=== PATIENT | female | born 1985 | race Caucasian/White ===

== ENCOUNTER 2023-09-29 06:57 | Outpatient (CLI) | payer BC, SELFPAY ==
--- NOTE | 2023-09-29 07:15 | CRLHL7_ITS ---
For Patients: As a result of the Century Cures Act, medical imaging exams and procedure reports are released immediately into your electronic medical record. You may view this report before your referring provider. If you have questions, please contact your health care provider. INDICATION: First trimester scan, establish dates. COMPARISON: None. TECHNIQUE: Real-time nunez-scale imaging of the pelvis was performed. FINDINGS: heart rate 169 beats per minute. [place]-rump length 2.7 cm, 9 weeks 4 days, 04/29/2024. edema noted with prominence of the abdominal wall. Yolk sac measures 4.1 millimeters. Corpus luteal cyst right ovary measuring 2.1 cm. Gestational sac appears normal with a mean sac diameter of 3.9 cm, 9 weeks 2 days. IMPRESSION: Single living IUP with sonographic gestational age 9 weeks 4 days and sonographic due date of 04/29/2024. There is concern for hydrops and appropriate follow-up recommended. Dictated by Gabriele Trejo MD @ 09/29/2023 10:41:26 AM (Electronically Signed)
== END 2023-09-29 06:58 | disposition home or self-care (01) ==
PROVIDERS: Visit Provider Registered Nurse
DX: Z34.91 Encounter for supervision of normal pregnancy, unspecified, first trimester (principal); Z3A.09 9 weeks gestation of pregnancy
CPT/HCPCS: 76817; 87491; 87591; T1013

== ENCOUNTER 2023-10-13 08:05 | Outpatient (CLI) | payer BC, SELFPAY | END 2023-10-13 08:06 | disposition home or self-care (01) | PROVIDERS: Visit Provider Physician Assistant | DX: Z34.81 Encounter for supervision of other normal pregnancy, first trimester (principal) | CPT/HCPCS: 86592; 86703; 86704; 86706; 86762; 86787; 86803; 86850; 86900; 86901; 87086; 87340; T1013 ==

== ENCOUNTER 2023-10-13 08:10 | Outpatient (CLI) | payer BC, SELFPAY ==
--- NOTE | 2023-10-13 08:15 | CRLHL7_ITS ---
For Patients: As a result of the Cures Act, medical imaging exams and procedure reports are released immediately into your electronic medical record. You may view this report before your referring provider. If you have questions, please contact your health care provider. INDICATION: Supervision of normal . COMPARISON: Ob ultrasound 09/29/2023. Technique: Transabdominal OB ultrasound. Findings : Single viable intrauterine gestation of 11 weeks and 5 days duration with an expected date of delivery 04/28/2024. heart rate 163 beats per minute and regular. [address]-rump length 5.1 cm and the mean diameter of the gestational sac 4.7 cm. A 1.2 x 0.9 x 0.7 cm subchorionic hemorrhage inferior to the gestational sac. No evidence of hydrops. A small corpus luteum cyst in the right ovary. IMPRESSION: 1. Single viable intrauterine gestation of 11 weeks and 5 days duration with an expected date of delivery 04/28/2024. 2. heart rate 163 beats per minute and regular. 3. [address]-rump length 5.1 cm and the mean diameter of the gestational sac 4.7 cm. 4. 1.2 x 0.9 x 0.7 cm subchorionic hemorrhage inferior to the gestational sac. 5. No hydrops identified at this time. Dictated by Nori Oswald MD @ 10/14/2023 10:22:02 AM (Electronically Signed)
== END 2023-10-13 08:11 | disposition home or self-care (01) ==
LOC: US 08:11
PROVIDERS: Visit Provider Physician Assistant
DX: Z34.91 Encounter for supervision of normal pregnancy, unspecified, first trimester (principal); O20.9 Hemorrhage in early pregnancy, unspecified; Z3A.11 11 weeks gestation of pregnancy
CPT/HCPCS: 76817; 86592; 86703; 86704; 86706; 86762; 86787; 86803; 86850; 86900; 86901; 87086; 87340

== ENCOUNTER 2023-11-10 09:00 | Outpatient (CLI) | payer BC, SELFPAY ==
[2023-11-10 12:26] LABS: Chlamydia DNA Amplified* NOT DETECTED (No Detected); GC DNA Amplified* NOT DETECTED (No Detected)
== END 2023-11-10 09:01 | disposition home or self-care (01) ==
LOC: NFLDREF 09:00
PROVIDERS: Visit Provider Obstetrics & Gynecology
DX: N89.8 Other specified noninflammatory disorders of vagina (principal)
CPT/HCPCS: 87491; 87591

== ENCOUNTER 2024-01-05 14:25 | Outpatient (CLI) | payer BC, SELFPAY ==
[2024-01-05 19:25] LABS: Chlamydia DNA Amplified* NOT DETECTED (No Detected); GC DNA Amplified* NOT DETECTED (No Detected)
== END 2024-01-05 14:26 | disposition home or self-care (01) ==
PROVIDERS: Visit Provider Obstetrics & Gynecology
DX: Z11.3 Encounter for screening for infections with a predominantly sexual mode of transmission (principal)
CPT/HCPCS: 86592; 86703; 86803; 87340; 87491; 87591

== ENCOUNTER 2024-02-03 14:42 | Outpatient (CLI) | payer BC, SELFPAY | END 2024-02-03 14:43 | disposition home or self-care (01) | LOC: NFLDREF 14:43 | PROVIDERS: Visit Provider Obstetrics & Gynecology | DX: Z34.93 Encounter for supervision of normal pregnancy, unspecified, third trimester (principal); Z3A.28 28 weeks gestation of pregnancy | CPT/HCPCS: 86592 ==

== ENCOUNTER 2024-02-10 07:59 | Outpatient (CLI) | payer BC, SELFPAY | END 2024-02-10 08:00 | disposition home or self-care (01) | LOC: NFLDREF 13:30 | PROVIDERS: Visit Provider Obstetrics & Gynecology | DX: R73.09 Other abnormal glucose (principal) | CPT/HCPCS: 82951; 82952; T1013 ==

== ENCOUNTER 2024-03-02 14:36 | Outpatient (CLI) | payer BC, SELFPAY ==
--- NOTE | 2024-03-02 14:45 | CRLHL7_ITS ---
For Patients: As a result of the Century Cures Act, medical imaging exams and procedure reports are released immediately into your electronic medical record. You may view this report before your referring provider. If you have questions, please contact your health care provider. INDICATION: Advanced maternal age. COMPARISON: None available. TECHNIQUE: Grayscale pelvic ultrasound via a transabdominal approach. FINDINGS: number: 1 Position: Cephalic. Placental Position: Posterior. Amniotic fluid: DVP 6.2cm. heart rate: 142bpm. BPD: 8.0cm; 32 weeks and 1 day. Percentile: 46% HC: 30.1cm; 33 weeks and 3 days. Percentile: 52% AC: 30.9cm; 34 weeks and 6 days. Percentile: <97% FL: 6.3cm; 32 weeks and 5 days. Percentile: 59% US EGA: 33 weeks and 2 days. US TREY: 04/18/2024 Established TREY: 04/27/2024 EFW: 2294gm, +/-344gm, corresponding to the 92nd percentile for the established TREY. Uterus: No significant uterine findings. Right ovary: Unseen. Left ovary: Unseen. IMPRESSION: measurements correspond to an EFW at the 92nd percentile for the established TREY. Dictated by Eber Camp MD @ 03/05/2024 9:05:02 AM (Electronically Signed)
== END 2024-03-02 14:37 | disposition home or self-care (01) ==
LOC: US 14:39
PROVIDERS: Visit Provider Registered Nurse
DX: O09.523 Supervision of elderly multigravida, third trimester (principal); Z3A.32 32 weeks gestation of pregnancy
CPT/HCPCS: 76816; T1013

== ENCOUNTER 2024-03-30 15:15 | Outpatient (CLI) | payer BC, MEDICAID, SELFPAY | END 2024-03-30 15:16 | disposition home or self-care (01) | LOC: NFLDREF 03-31 16:33 | PROVIDERS: Visit Provider Obstetrics & Gynecology | DX: O24.419 Gestational diabetes mellitus in pregnancy, unspecified control (principal); Z3A.36 36 weeks gestation of pregnancy | CPT/HCPCS: 87081; 87653 ==

== ENCOUNTER 2024-04-06 14:06 | Outpatient (CLI) | payer BC, MEDICAID, SELFPAY ==
--- NOTE | 2024-04-06 14:00 | CRLHL7_ITS ---
For Patients: As a result of the Century Cures Act, medical imaging exams and procedure reports are released immediately into your electronic medical record. You may view this report before your referring provider. If you have questions, please contact your health care provider. INDICATION: Third trimester scan, evaluate growth. GDM. COMPARISON: 03/02/2024 TECHNIQUE: Real time nunez scale imaging of the fetus was performed. FINDINGS/IMPRESSION: Sonographic imaging demonstrates a single living intrauterine gestation. Fetus demonstrates a regular cardiac rate of 141 beats per minute. Fetus has a vertex position. The placenta lies posteriorly. Amniotic fluid volume appears normal and there is a single deepest vertical pocket: 5.0 cm. The estimated weight is 3290gm which lies at the 75th %. On the prior OB ultrasound exam dated 03/02/2024 the estimated weight was at the 92nd%. BPD 18th percentile. HC 18th percentile. AC greater than 97th percentile. FL 35th percentile. The HC/AC ratio measures 0.92 range (0.92-1.05). Sonographic gestational age 36 weeks 6 days and sonographic due date of 04/28/2024. Good correlation with dates. Dictated by Gabriele Trejo MD @ 04/08/2024 6:14:27 PM (Electronically Signed)
== END 2024-04-06 14:07 | disposition home or self-care (01) ==
LOC: US 14:07
PROVIDERS: Visit Provider Obstetrics & Gynecology
DX: O24.419 Gestational diabetes mellitus in pregnancy, unspecified control (principal); Z3A.36 36 weeks gestation of pregnancy
CPT/HCPCS: 76816; T1013

== ENCOUNTER 2024-04-20 05:56 | Inpatient (IN) | payer BC, MEDICAID, SELFPAY ==
[2024-04-20] VITALS (44 sets, daily range): BP systolic 79–121; BP diastolic 33–77; PULSE 60–99; RESP 16–20; TEMP 36.3–37.4; O2SAT 71–100; BMI 30.2
[2024-04-20] MEDS: LACTATED RINGERS 1000 ML 1,000 ML IV ×2 (06:20→07:41)
[2024-04-20 06:26] LABS: Hemoglobin* 12.6 gm/dL (12.0-16.0)
[2024-04-20 06:55] LABS: Basophils Absolute Auto 0.01 K/uL (0.00-0.30); Basophils Percent Auto 0.2 % (0.0-3.0); Eosinophils Absolute Auto 0.06 K/uL (0.00-0.50); Eosinophils Percent Auto 0.9 % (0.0-7.0); Hematocrit 37.5 % (33.0-51.0); Immature Granulocytes Abs Auto 0.03 K/uL (0.00-0.30); Immature Granulocytes Pct Auto 0.5 %; Lymphocytes Absolute Auto 1.64 K/uL (0.90-2.90); Lymphocytes Percent Auto 24.7 % (20-44); Mean Corpuscular HGB Conc 34 gm/dL (32-36); Mean Corpuscular Hemoglobin 30 pg (26-34); Mean Corpuscular Volume 90 fL (80-100); Neutrophils Absolute Auto 4.29 K/uL (1.7-7.0); Neutrophils Percent Auto 64.7 % (42.0-72.0); Platelet Count* 302 K/uL (140-440); RDW Coefficient of Variation % 13.2 % (11.5-15.5); Red Blood Count 4.19 m/uL (4.00-5.20); White Blood Count* 6.63 K/uL (4.50-11.00)
[2024-04-20 06:59] LABS: Slide Review Reflex No
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
[2024-04-20] MEDS: CEFAZOLIN 2 GM INJ IVP (07:30)
--- NOTE | 2024-04-20 07:44 | W.ANESCHARGE ---
Anesthesia Charges Start Date/Time Anesthesia Start Date: 04/20/24 Anesthesia Start Time: 07:24 Stop Date/Time Anesthesia Stop Date: 04/20/24 Anesthesia Stop Time: 09:30
[2024-04-20] MEDS: PHENYLEPHRINE 100 MCG/ML SYRINGE IVP (09:45)
--- NOTE | 2024-04-20 09:45 | W.PM.NB ---
Nerve Block Nerve Block Time Seen by Provider: 09:20 Date Seen: 04/20/24 Type of block requested by surgeon for post-operative analgesia: TAP Side: bilateral Time out performed: Yes Verification of patient name: Yes Verification of date of : Yes Name of person performing procedure: Alex Raines CRNA Continuous monitoring Was continuous monitoring of O2 sat, B/P, environmental monitoring technician, recorded every 15 minutes?: Yes Procedure Ultrasound guided. Images saved: Yes Medications given in 5ml increments after negative aspiration: Marcaine %: 0.25 mL: 30 Needle gauge: 20 and Exparel mL: 10 Needle gauge: 20 Block Charges Block Charge (with Pro Fee): TAP Bilateral Use of Ultrasound Machine for Block: Yes- US Guidance/pain block
[2024-04-20] MEDS: OXYTOCIN 30 unit/500 ML in NS 30 UNIT/500 ML BAG 300 UNIT IVPB (09:55)
--- NOTE | 2024-04-20 09:56 | W.ANESCHARGE ---
Anesthesia Charges Start Date/Time Anesthesia Start Date: 04/20/24 Anesthesia Start Time: 07:24 Stop Date/Time Anesthesia Stop Date: 04/20/24 Anesthesia Stop Time: 09:30
[2024-04-20 10:06] LABS: Basophils Absolute Auto 0.02 K/uL (0.00-0.30); Basophils Percent Auto 0.2 % (0.0-3.0); Eosinophils Absolute Auto 0.03 K/uL (0.00-0.50); Eosinophils Percent Auto 0.3 % (0.0-7.0); Hematocrit 35.1 % (33.0-51.0); Hemoglobin* 11.7 gm/dL (12.0-16.0); Immature Granulocytes Abs Auto 0.02 K/uL (0.00-0.30); Immature Granulocytes Pct Auto 0.2 %; Lymphocytes Percent Auto 11.7 % (20-44); Mean Corpuscular HGB Conc 33 gm/dL (32-36); Mean Corpuscular Hemoglobin 30 pg (26-34); Mean Corpuscular Volume 91 fL (80-100); Monocytes Percent Auto 4.3 % (0.0-11.0); Neutrophils Percent Auto 83.3 % (42.0-72.0); Platelet Count* 253 K/uL (140-440); RDW Coefficient of Variation % 13.2 % (11.5-15.5); Red Blood Count 3.85 m/uL (4.00-5.20); White Blood Count* 9.33 K/uL (4.50-11.00)
[2024-04-20 10:07] LABS: Slide Review Reflex No
[2024-04-20 10:22] LABS: INR 0.94 (0.91-1.10); Prothrombin Time 13.1 Seconds
[2024-04-20 10:23] LABS: Partial Thromboplastin Time* 26 Seconds (23-33)
[2024-04-20 10:24] LABS: Fibrinogen* 493 mg/dL (200-450)
--- NOTE | 2024-04-20 11:06 | PM.OBPRCCS ---
OB Delivery Proc Additional Procedures Tubal Ligation at the time of : No Other: Yes (Scar revision, Bakri balloon placement) Procedure Date of procedure: 04/20/24 Pre-op diagnosis: IUP at 39 weeks, GDMA1, Previous section x1 desiring repeat, section scar revision Post-op diagnosis: other (Same, suspected abnormal placentation) Procedure Done: Global Will [facility] bill your pro fee for this procedure?: Yes Blood Loss Measurement Type: QBL (905) Bakri Used: Yes IV fluids (mL): 1,800 Urine Output (mL): 200 Urine Output Comment: Clear at end of procedure Surgeon: Xochilt Lombardo MD Anesthesia Type: Local Findings: FINDINGS: Live-born female , cephalic presentation, Apgars 9 and 9 at 1 and 5 minutes respectively. weight 7 pounds 3 ounces. Suspected abnormal placentation: Posterior lower uterine segment endometrial tissue with 3 spots that looked like disrupted endometrium/myometrial tissue. Grossly normal bilateral fallopian tubes and ovaries. Procedure Name: Repeat low transverse section, revision of previous vertical skin incision scar, placement of Bakri balloon. Procedure Description: PROCEDURE: After obtaining informed consent, the patient was taken to the operating room where spinal anesthesia was obtained and found to be adequate. She was prepared and draped in the normal sterile fashion in the dorsal supine position with a leftward tilt. A vertical skin incision was made with a scalpel along the line of the patient's previous scar. This incision was carried down to the underlying layer of fascia with the scalpel. The fascia was incised vertically and the incision extended vertically. Left lateral fascia grasped with Zita clamps, elevated and the underlying rectus muscles dissected off bluntly. The rectus muscles were then in the midline and peritoneal cavity entered bluntly. The adhesions between the bladder and lower uterine segment were taken down sharply with Metzenbaum scissors. The Reid O retractor was then placed into the incision. The lower uterine segment was then incised in a transverse fashion with the scalpel. Upon entry into the uterus, clear amniotic fluid was noted. The uterine incision was extended cephalo caudally with blunt finger fractionation. The infant's head was delivered atraumatically, followed by the remainder of the 's body. The nose and mouth were suctioned with the bulb suction. The cord was doubly clamped and cut, and the infant was handed off the field to warm for evaluation. The placenta was delivered spontaneously with umbilical cord traction and fundal massage. The uterus was cleared of all clots and debris. Constant and heavy bleeding noted from the posterior lower uterine segment. At least 3 spots that looked like disrupted endometrium/myometrial tissue were identified and suture ligated with Vicryl 0 in figure of 8 stitches. This significantly decreased the amount of bleeding. Uterine tone remained adequate but due to concerns of abnormal placentation 1g of TXA was given at this time. The uterine incision was reapproximated in a running locking fashion with a 0 Vicryl suture. A 2nd layer of the same suture was used to imbricate in horizontal fashion. The gutters were inspected and cleared of blood clots. All instruments and retractors were removed. The anterior peritoneum/subfascial tissues and fascia were reapproximated in a full thickness manner utilizing PDS 0 looped suture in a running fashion. Previous section scar skin borders were grasped with Allis clamps and skin removed with a 15 blade scalpel. The subcutaneous tissues were inspected and hemostasis was assured. The subcutaneous fat layer was reapproximated with interrupted sutures of 3-0 Vicryl in multiple layers. The skin was closed in a subcuticular fashion with 4-0 Monocryl. LiquiBand and dressing were applied. The patient tolerated the procedure well. Sponge, lap, needle, and instrument counts were reported as correct x2. At end of procedure I re evaluated bleeding and a gush of blood at least 100mL noted and decision made to place Bakri balloon. I was able to place manually since cervix was 1cm dilated, very soft. Bakri balloon left in the lower uterine segment with 150mL of saline. About 50mL of blood at collection bag at end of procedure. No bleeding noted vaginally otherwise after placement, fundal massage. The patient was taken to the recovery room, awake, and in stable condition. She did receive 2 grams of IV Ancef preoperatively. Complications: Suspected abnormal placentation, intraoperative bleeding w/o hemorrhage. Pathology: specimen obtained, sent to pathology (Placenta) Surgery Debrief Performed: Yes Condition: stable Disposition: floor total score - 1 minute: 9 total score - 5 minute: 9
[2024-04-20] MEDS: KETOROLAC 30 MG/ML inj IVP ×2 (16:18→22:21)
[2024-04-20] MEDS: LACTATED RINGERS 1000 ML 1,000 ML 125 ML IV (17:07)
[2024-04-20] MEDS: CEFAZOLIN 2 GM in 0.9 % SODIUM CHLORIDE Mini-bag 100 ML IVPB ×2 (17:18→23:23)
[2024-04-20] MEDS: ACETAMINOPHEN 500 MG TABLET 1000 MG PO (21:01)
[2024-04-21] VITALS (10 sets, daily range): BP systolic 95–117; BP diastolic 54–72; PULSE 86–99; RESP 16–20; TEMP 36.6–37.2; O2SAT 94–97
[2024-04-21] MEDS: KETOROLAC 30 MG/ML inj IVP ×3 (04:27→16:27)
[2024-04-21 06:37] LABS: Hemoglobin* 10.7 gm/dL (12.0-16.0)
--- NOTE | 2024-04-21 08:29 | P.OBPN_ITS ---
OB - PN:Subj Subjective Time Seen by Provider: 08:29 Date Seen: 04/21/24 Narrative: Overnight patient had no complaints. Her pain is well controlled on oral pain medications. She is tolerating a regular diet. She has passed flatus and BM. She is not ambulating without difficulty - has increased pain with ambulation. Lochia is scant. She is urinating without islas. Patient denies chest pain, SOB, n/v, headache, RUQ pain, vision changes, dizziness. OB - PN: Obj Exam Physical Exam: Vital signs: Temp Pulse Resp BP Pulse Ox O2 Del Method 98.4 F 95 16 101/64 97 Room Air 04/21/24 08:00 04/21/24 08:00 04/21/24 08:00 04/21/24 08:00 04/21/24 08:00 04/21/24 08:00 Narrative: Physical exam: General: No acute distress Psych: Alert and oriented x4, full affect HEENT: Normocephalic, atraumatic Neck: No cervical adenopathy, no thyromegaly Heart: Regular rate and rhythm, no murmur rub or gallop Lungs: Clear to auscultation bilaterally Abdomen: Normoactive bowel sounds, soft, no tenderness, rebound, or guarding, no masses, no hepatosplenomegaly, no hernias Incision: Dressing Clean, dry, and intact. No erythema, induration, or abnormal discharge/breakdown of surrounding skin. Skin: No lesions or rashes Breasts: no nodules or masses, no nipple discharge, no axillary adenopathy Lower extremities: No edema or erythema Pelvic exam: Small amount of vaginal bleeding on pad OB - PN: Obj Data Labs Labs: Laboratory Results - last 24 hr 04/20/24 04/21/24 10:00 06:31 WBC 9.33 RBC 3.85 L Hgb 11.7 L 10.7 L Hct 35.1 MCV 91 MCH 30 MCHC 33 RDW Coeff of Sera 13.2 Plt Count 253 Neut % (Auto) 83.3 H Lymph % (Auto) 11.7 L [place] % (Auto) 4.3 Eos % (Auto) 0.3 Baso % (Auto) 0.2 Neut # (Auto) 7.80 H Lymph # (Auto) 1.10 [place] # (Auto) 0.40 Eos # (Auto) 0.03 Baso # (Auto) 0.02 Abs Immat Gran (auto) 0.02 Imm/Tot Granulo (auto) 0.2 INR 0.94 APTT 26 Fibrinogen 493 H OB - PN: A/P Delivery Assessment and Plan (1) : Status: Acute (2) History of delivery: Status: Acute (3) Gestational diabetes: Status: Acute (4) Acute blood loss anemia: Status: Acute Plan Postoperative/post delivery Review: - Admitted for: Scheduled surgery - Surgical procedure: Repeat CD, revision of previous vertical skin incision scar, placement of Bakri balloon - Skin incision: Midline infraumbilical vertical - Closure: sutures - Estimated blood loss: 905 mL - Intraoperative Complications: Suspected abnormal placentation, intraoperative bleeding w/o hemorrhage. - Urine output: 1.31 cc/kg/hr - Preop/pre delivery H/H: 12.6/37.5 - Postop/post delivery H/H: 11.7/35.1 GDM A1 - BG this AM: 83 - Pending 2hr gtt Postoperative care: - Diet: Advance as tolerated - Fluid: Encourage oral intake - Activity: Encourage ambulation and incentive spirometry - Pain: Acetaminophen, Ibuprofen, and oxycodone - DVT prophylaxis: SCDs and TEDs when not ambulating. Discharge Planning - Follow up in 5-7 days for incision check in clinic - Follow Up: follow-up at 2 weeks and 6 weeks in clinic Baby's Status - Fetus: 9, 9 g, female - Location: bedside Dispo: Patient is POD#1. Need the following milestones: pain control with ambulation. Anticipate discharge POD#2.
[2024-04-21] MEDS: DOCUSATE SODIUM 100 MG CAPSULE PO (10:00)
[2024-04-21] MEDS: FERROUS SULFATE 325 MG TABLET PO (12:29)
[2024-04-21] MEDS: ACETAMINOPHEN 500 MG TABLET 1000 MG PO ×2 (16:27→22:34)
[2024-04-21] MEDS: LANOLIN CREAM 1 APPLIC TOPICAL (23:19)
[2024-04-22] MEDS: IBUPROFEN 600 MG TABLET PO ×2 (01:50→08:16)
[2024-04-22 02:17] LABS: Rapid Plasma Reagin (RPR) Non Reactive (Non Reactive)
[2024-04-22] MEDS: ACETAMINOPHEN 500 MG TABLET 1000 MG PO ×2 (04:52→10:57)
[2024-04-22] MEDS: OXYCODONE 5 MG TABLET PO ×2 (04:53→09:00)
[2024-04-22 05:15] VITALS: BP 104/69; PULSE 79; RESP 16; TEMP 36.7; O2SAT 96
[2024-04-22 07:32] VITALS: BP 106/68; PULSE 81; RESP 18; TEMP 36.4; O2SAT 95
[2024-04-22 07:53] LABS: Glucose Fasting 75 mg/dl (70-95)
[2024-04-22] MEDS: DOCUSATE SODIUM 100 MG CAPSULE PO (08:16)
--- NOTE | 2024-04-22 08:36 | PM.OBDSVD1 ---
DS: Providers Provider Time Seen by Provider: 08:38 Date Seen: 04/22/24 Date of admission: 04/20/24 05:56 Primary care physician: Not a Local Provider Admitting Clinician: Dina Lombardo MD Consults: 04/20/24 06:44 Consult to Temperature Control Inspector [CONS] Routine Comment: Reason for Consult:: Social Service Consult 04/20/24 15:18 Consult to Temperature Control Inspector [CONS] Routine Comment: Reason for Consult:: Discharge Planning Needs Attending Physician on discharge: Dina Lombardo MD DS: Diagnosis Discharge Diagnosis (1) Acute blood loss anemia: Status: Acute (2) History of delivery: Status: Acute (3) Gestational diabetes: Status: Acute Exam Narrative: Exam Narrative: Physical exam: General: No acute distress Psych: Alert and oriented x4, full affect HEENT: Normocephalic, atraumatic Heart: Regular rate and rhythm, no murmur rub or gallop Lungs: Clear to auscultation bilaterally Abdomen: Normoactive bowel sounds, soft, no tenderness, rebound, or guarding Incision: Appropriately tender to palpation. Clean, dry, and intact. No erythema, induration, or abnormal discharge/breakdown Skin: No lesions or rashes Breasts: no nodules or masses, no nipple discharge, no axillary adenopathy Lower extremities: No edema or erythema Pelvic exam: No vaginal bleeding on pad Const: Vital Signs, click to edit/add: Vital Signs - 24 hr 04/21/24 16:16 04/21/24 22:38 04/22/24 05:15 Temperature 98.5 F 98.3 F 98.0 F Pulse Rate [Left P ulse Oximeter] 86 Pulse Rate [Right Pulse Oximeter] 99 79 Respiratory Rate 20 16 16 Blood Pressure [Le ft Arm] 117/71 110/72 104/69 Pulse Oximetry 96 97 96 Oxygen Delivery Me thod Room Air Room Air Room Air 04/22/24 07:32 Temperature 97.5 F L Pulse Rate [Left P ulse Oximeter] Pulse Rate [Right Pulse Oximeter] 81 Respiratory Rate 18 Blood Pressure [Le ft Arm] 106/68 Pulse Oximetry 95 Oxygen Delivery Me thod Room Air OB - DS: Summary Hospital Course Hospital Course: The patient is a 38 year old G3 P 2012 at 39.0 weeks gestation that was admitted to the Center on 04/20/24 for scheduled repeat CD. She had a delivery. She delivered a viable female . She is . the patient has done well. Overnight patient had no complaints. Her pain is well controlled on oral pain medications. She is tolerating a regular diet. She has passed flatus and BM. She is ambulating without difficulty. Lochia is scant. She is urinating without islas. Patient denies chest pain, SOB, n/v, headache, RUQ pain, vision changes, dizziness. Peripartum Data Procedures: Procedures Operation Date: 04/20/24 07:15 Actual Procedure Side Surgeon p Repeat Section, Vertical Skin Incision, Scar Revision, Placement of Bakri Balloon Not Applicable Dina Lombardo MD Christine Gender: Female Time Spent with Patient Time attestation: Total time spent providing and/or coordinating discharge services: Discharge Plan Discharge Disposition: Home, Self-Care Date of Admission: 04/20/24 05:56 Attending Provider on Discharge: Yaneth Blanco Primary Care Provider: Provider,Not a Local Condition: Stable Anticipated Discharge Date/Time: 04/22/24 08:21 Discharge Medications: New acetaminophen 500 mg Tablet 1,000 mg PO Q6H PRN (Reason: Pain) 30 Days Qty: 60 0RF docusate sodium 100 mg Capsule 100 mg PO DAILY 30 Days Qty: 30 0RF ferrous sulfate 325 mg (65 mg iron) Tablet 325 mg PO Q48H 30 Days Qty: 15 0RF ibuprofen 600 mg Tablet 600 mg PO Q6H PRN (Reason: Pain) 30 Days Qty: 60 0RF Lanolin (HPA) 100 % Cream 1 applic topical Q1H PRN60 Days Qty: 21 0RF simethicone 80 mg Tablet,Chewable 80 - 160 mg PO Q4H PRN (Reason: gas) 14 Days Qty: 30 0RF oxycodone 5 mg Tablet 5 mg PO Q6H PRN (Reason: Pain) 14 Days Qty: 20 0RF polyethylene glycol 3350 [Miralax] 17 gram/dose powder 17 g PO DAILY Qty: 119 0RF Continued DHA 200 mg capsule 200 mg PO DAILY Discontinued (DME) blood-glucose meter Misc See Rx Instructions .Route Qty: 1 0RF Rx Instructions: As directed to check blood glucose level. (DME) lancets [Accu-Chek Softclix Lancets] Misc See Rx Instructions .Route Qty: 100 3RF Rx Instructions: As directed to take blood glucose four times daily. (DME) Blood Glucose Test Strip See Rx Instructions .Route Qty: 100 3RF Rx Instructions: As directed to take blood glucose four times daily. Discharge Orders: Discharge Order (Routine); Ordered 04/22/24 Ordered By: Yaneth Blanco Patient Education: (DC), OB /Breast Feeding Follow Up Appointments: Provider,Not a Local [Primary Care Provider] - Forms: [facility] Info Instructions Discharge Comments: Total Abdominal Hysterectomy POSTOPERATIVE INSTRUCTIONS ACTIVITY No heavy lifting/pushing/pulling for 4-6 weeks. Do not lift anything more than about 10-15 lbs (such as laundry, groceries, children, pets), vacuum, push heavy doors or grocery carts, etc. You may climb stairs as tolerated. Do not put anything in the vagina for 6 weeks after surgery unless otherwise instructed by your doctor (including tampons, douching, sexual intercourse, etc). No driving for about 2 weeks after surgery, while you are taking narcotic pain medication, or until you feel that you are ready. Practice checking your blind spot and stepping hard on the brake. Avoid sitting or lying in bed for more than 2 hours at a time while you are awake to reduce your risk of blood clots. You may return to work when directed by your physician. Please contact your doctor if you need any return to work letters or medical leave paperwork to be completed. WOUND CARE You will have one large incision on your abdomen. There will be dissolvable stitches under your skin that do not need to be removed. You will also have steri-strips (paper tape) on the incisions and these may be removed like a Band-Aid when they curl up at the edges. Shower daily after surgery. Clean your incision with mild antibacterial soap and water. Pat your incision dry with a clean towel. No tub baths until wound is completely healed. Wash your hands frequently, especially before touching your incision, changing any dressings, after using the restroom, and before eating. PAIN MANAGEMENT Take your oral pain medication as needed. You should be taking Ibuprofen 600mg every 6 hours with 1 gram of Tylenol every 6 hours. You can take these together every six hours or alternate them every 3 hours. You should then take the oxycodone as needed if you have breakthrough pain on top of the Tylenol and Ibuprofen. Some pain medications can cause constipation so you should take a stool softener (i.e. colace) while you are on these medications. You may also take milk of magnesia or Miralax for constipation. WHAT TO EXPECT AT HOME Recovery from surgery is generally 4-6 weeks, but sometimes longer for more strenuous activity. It is normal to be very tired during this time. It is normal to have some drainage or a small amount of vaginal bleeding after surgery which may last up to 6 weeks. You may go home with a islas catheter in your bladder. You will need to follow up for a nurse visit in 7-10 days for removal. You will most likely experience gas pain, abdominal swelling, or shoulder pain for 24-72 hours after surgery. A warm shower, heating pad, and/or walking may help. WHEN TO CALL YOUR DOCTOR : Fever (>100.4?F or 38.0?C) or chills. Incision problems such as redness, warmth, swelling, or foul smelling drainage. Severe nausea or persistent vomiting. Bright red vaginal bleeding (soaking >1 pad/hour) or foul smelling vaginal drainage. Severe pain not relieved with pain medication. Pain and swelling in your legs, especially if it is only on one side and not the other. Pain with urination, cloudy urine, or foul smelling urine. Or if you have any other problems or questions. CALL 911 OR GO TO THE EMERGENCY ROOM IF YOU HAVE: Any shortness of breath, difficulty breathing, or chest pain.
[2024-04-22 09:55] LABS: Glucose 2 Hour 93 mg/dl (70-155)
== END 2024-04-22 12:50 | disposition home or self-care (01) | DRG 540 ==
PROVIDERS: Obstetrics & Gynecology; Admitting Provider Obstetrics & Gynecology; Visit Provider Obstetrics & Gynecology
PROC: 10D00Z1 Extraction of Products of Conception, Low, Open Approach (ICD-10-PCS; CPT 59514; principal; 2024-04-20 07:15)
DX: O24.420 Gestational diabetes mellitus in childbirth, diet controlled (principal); Z3A.39 39 weeks gestation of pregnancy; Z37.0 Single live birth; O43.103 Malformation of placenta, unspecified, third trimester; O90.81 Anemia of the puerperium; D62 Acute posthemorrhagic anemia; G89.18 Other acute postprocedural pain; Z91.414 Personal history of adult intimate partner abuse
CPT/HCPCS: 01961; 36415; 64488; 76942; 82947; 82950; 82962; 85018; 85025; 85384; 85610; 85730; 86592; 86850; 86900; 86901; 88307; T1013; A4314; A9270; C9290; J0665; J0690; J1885; J2274; J2371; J2405; J2590; J3010; J7120

== ENCOUNTER 2024-06-01 09:52 | Outpatient (CLI) | payer MEDICAID, SELFPAY ==
[2024-06-04 15:20] LABS: HPV Source Cervix; HPV, High Risk by TMA Detected
[2024-06-05 10:36] LABS: HPV Genotype 16 by TMA Not Detected; HPV Genotype 18/45 by TMA Not Detected; HPVG Source Cervical
== END 2024-06-01 09:53 | disposition home or self-care (01) ==
PROVIDERS: Visit Provider Registered Nurse
DX: R05.9 Cough, unspecified (principal); Z12.4 Encounter for screening for malignant neoplasm of cervix
CPT/HCPCS: 87624; 87625; 88141; 88142